=== PATIENT | male | born 1985 ===

== ENCOUNTER 2022-02-25 20:17 | Emergency (ER) | payer SELFPAY ==
[2022-02-25] MEDS ORDERED: ONDANSETRON 4 MG/2 ML INJ ONE (21:34)
[2022-02-25] MEDS ORDERED: ONDANSETRON 4 MG/2 ML INJ IV ONE (22:42)
[2022-02-25 23:13] LABS: Basophils % (Auto) 0.3 % (0.0-1.8); Eosinophils % (Auto) 0.1 % (0.0-4.3); Hematocrit 42.8 % (35.5-45.6); Hemoglobin 14.1 gm/dl (11.8-15.2); Lymphocytes # (Auto) 0.9 K/mm3 (1.2-5.4); Lymphocytes % (Auto) 6.4 % (13.4-35.0); Mean Corpuscular HGB Conc 33 % (32-34); Mean Corpuscular Volume 88 fl (84-94); Monocytes # (Auto) 0.8 K/mm3 (0.0-0.8); Monocytes % (Auto) 5.6 % (0.0-7.3); Platelet Count 261 K/mm3 (140-440); Red Blood Count 4.89 M/mm3 (3.65-5.03); Red Cell Distribution Width 14.1 % (13.2-15.2)
[2022-02-25 23:31] LABS: BUN/Creatinine Ratio 20; Blood Urea Nitrogen 16 mg/dL (9-20); Calcium 8.4 mg/dL (8.4-10.2); Hemolysis Index 4
--- NOTE | 2022-02-25 23:33 | Emergency Department Report ---
HPI - General Chief Complaint: Overdose PUI?: No Time Seen by Provider: 02/25/22 21:44 - HPI HPI: 36-year-old male brought in by EMS for opiate overdose. EMS personnel not readily available at the time of this provider's independent evaluation of the patient. Report provided by the patient's nurse. Per EMS the patient was found unresponsive after having used cocaine. He was given Narcan which resulted in improvement in his mental status and vomiting. Patient reports he snorts cocaine nearly daily and had some prior to arrival. He also states he had 5 cans of beer as well. He reports of a left-sided headache which has been intermittent over the past 3 weeks. No falls or head trauma. No vision changes. No tingling numbness in his arms or legs. No difficulty talking walking or word finding. He states he has not been drinking fluids. No fevers or chills. No URI symptoms. No dental pain. Pain currently 3 out of 10 ED Past Medical Hx - Past Medical History Previous Medical History?: No - Surgical History Past Surgical History?: No - Social History Smoking Status: Unknown if ever smoked Substance Use Type: Alcohol, Cocaine ED Review of Systems ROS: Stated complaint: OVERDOSE Other details as noted in HPI Comment: All other systems reviewed and negative Physical Exam - Physical Exam Vital Signs: Vital Signs 02/25/22 02/25/22 02/25/22 20:24 21:40 21:45 Temperature Pulse Rate 89 81 73 Respiratory 18 31 H 27 H Rate Blood Pressure 141/90 122/71 O2 Sat by Pulse 98 94 93 Oximetry 02/25/22 02/25/22 02/25/22 22:01 22:02 22:15 Temperature 97.8 F Pulse Rate 72 68 71 Respiratory 22 14 19 Rate Blood Pressure 122/71 107/61 107/61 O2 Sat by Pulse 91 93 91 Oximetry General: Gen: pt is well appearing, no acute distress HEENT: Normocephalic atraumatic pupils equally round and reactive to light extraocular muscles intact sclera anicteric Neck: Full range of motion, no midline spinal tenderness palpation, no JVD, no carotid bruits, no nuchal rigidity CVS: S1-S2 regular rate and rhythm with no gallops rubs or murmurs, chest wall nontender Pulmonary: Clear to auscultation bilaterally, no wheezes rales or rhonchi Abdomen: Soft nondistended nontender no guarding or rebound tenderness, no palpable deformities or step-offs, normal active bowel sounds, no hepatosplenomegaly, no pulsatile masses : Deferred Extremities: No cyanosis no clubbing no edema, intact distal peripheral pulses, Integumentary: Skin normal, no petechia no purpura no abscess no lacerations no evidence of trauma no evidence of infection Neuro: Patient is awake alert and oriented to person place time situation, mentating well, cranial nerves II through XII intact, no focal neurodeficits, sensation grossly tact Psych: Calm cooperative, mood affect normal ED Course Vital Signs 02/25/22 02/25/22 02/25/22 20:24 21:40 21:45 Temperature Pulse Rate 89 81 73 Respiratory 18 31 H 27 H Rate Blood Pressure 141/90 122/71 O2 Sat by Pulse 98 94 93 Oximetry 02/25/22 02/25/22 02/25/22 22:01 22:02 22:15 Temperature 97.8 F Pulse Rate 72 68 71 Respiratory 22 14 19 Rate Blood Pressure 122/71 107/61 107/61 O2 Sat by Pulse 91 93 91 Oximetry ED Medical Decision Making - Lab Data Result diagrams: 02/25/22 22:40 02/26/22 03:32 - Radiology Data Radiology results: report reviewed - Medical Decision Making 36-year-old male with history of alcohol and cocaine abuse, brought in by EMS for accidental opiate overdose, with subsequent response to Narcan. Patient arrived here ANO x4, actively vomiting. He was given Zofran as an antiemetic as well as intravenous fluids. Urine drug screen unable to be obtained as the patient did not urinate and refused urinary straight catheterization. Patient had mild elevated anion gap metabolic acidosis. He was given intravenous fluids and basic metabolic panel was repeated. Elevated anion gap metabolic acidosis has resolved. The patient was reassessed multiple times and he is mentating well. He had no evidence of recurrent altered mental status requiring Narcan or any other intervention. Patient counseled concerning the need to cease abusing illegal drugs. He was discharged home in stable condition. No further emergent work-up warranted. Prior to discharge she was given strict verbal and written return precautions. Patient verbalized understanding agreed the plan of care. Critical Care Time: No Critical care attestation.: If time is entered above; I have spent that time in minutes in the direct care o f this critically ill patient, excluding procedure time. ED Disposition Clinical Impression: Cocaine abuse, Opiate overdose Disposition: HOME / SELF CARE / HOMELESS Is pt being admited?: No Does the pt Need Aspirin: No Condition: Stable Additional Instructions: It is strongly advised that you stop using drugs and drinking alcohol. These can kill you. Follow up with your primary care doctor within one week for reassessment. Return if your symptoms persist worsen or if any other new worrisome symptoms develop
--- NOTE | 2022-02-25 23:53 | Cat Scan Report ---
CT HEAD WITHOUT CONTRAST INDICATION / CLINICAL INFORMATION: L temporal headache x 3 weeks, cocaine abuse. TECHNIQUE: CT head was performed without administration of intravenous contrast. All CT scans at this location are performed using CT dose reduction for ALARA by means of automated exposure control. COMPARISON: None available. FINDINGS: CEREBRAL HEMISPHERES: There is no evidence of large territorial infarction or significant abnormality of villalpando-white matter differentiation. Ventricles within normal limits. No midline shift. Basal ciste rns patent. HEMORRHAGE: None. CEREBELLUM / BRAINSTEM: No significant abnormality. ORBITS: No significant abnormality. SOFT TISSUES: No significant abnormality. SKULL: No significant abnormality. PARANASAL SINUSES / MASTOID AIR CELLS: Normal as visualized. ADDITIONAL FINDINGS: None. IMPRESSION: 1. No acute intracranial abnormality. Signer Name: Arvind Salazar II, MD Signed: 02/25/2022 11:48 PM Workstation Name: [id number]
[2022-02-26] MEDS ORDERED: SODIUM CHLORIDE 0.9% 1000 ML 1,000 ML IV ONE (00:25)
[2022-02-26 04:14] LABS: Blood Urea Nitrogen 15 mg/dL (9-20); Calcium 8.3 mg/dL (8.4-10.2); Hemolysis Index 15
[2022-02-26 04:43] LABS: BUN/Creatinine Ratio 21
[2022-02-26 05:10] VITALS: BP 116/72
--- NOTE | 2022-02-26 13:24 | Electrocardiograph Report ---
[facility] Test Date: 2022-02-25 Test Time: 21:42:43 Pat Name: TD RIVERA Department: Room: Gender: M Sample [employer]: NURSE : 1985 Requested By: GRACIE HALL Order Number: [id number] Reading MD: Jg Moulton Measurements Intervals [place] Rate: 74 P: 59 VT: 145 QRS: 46 QRSD: 88 T: 20 QT: 383 QTc: 426 Interpretive Statements Sinus rhythm No previous ECG available for comparison Electronically Signed On 02-26-2022 13:24:11 EDT by Jg Moulton
== END 2022-02-26 05:08 | disposition home or self-care (01) ==
LOC: ED 20:17
DX: T40.601A Poisoning by unspecified narcotics, accidental (unintentional), initial encounter (principal); F14.10 Cocaine abuse, uncomplicated; Y92.89 Other specified places as the place of occurrence of the external cause
CPT/HCPCS: 36415; 70450; 80048; 85025; 93005; 96361; 96374; 99284; J2405; J7030; 80320; G0480